=== PATIENT | male | born 1950 | race Caucasian/White ===

== ENCOUNTER 2018-05-03 13:03 | Emergency (ER) | payer MEDICARE, OTHER ==
[2018-05-03 13:03] VITALS: BMI 26.6
[2018-05-03 13:57] VITALS: BP 161/84; PULSE 64; RESP 18; TEMP 98.5; O2SAT 96
--- NOTE | 2018-05-03 15:37 | RAD ---
PROCEDURE: Left Hand Radiographs. HISTORY: left hand pain COMPARISON: None. FINDINGS: BONES: Normal. No fracture. JOINTS: Normal. No osteoarthritic changes. SOFT TISSUES: Normal. OTHER FINDINGS: None. IMPRESSION: Negative study
--- NOTE | 2018-05-03 16:46 | ED PDOC ---
Arrival/HPI - General Historian: Patient - History of Present Illness Narrative History of Present Illness (Text): 05/03/18 16:30 67 year old male with PMH of diabetes and HTN presents to emergency department complaining of left hand pain x 2 weeks. Describes pain as achey, located mostly to the proximal left 1st digit at MCP joint. States he feels a "ball there" and that sometimes it "gets stuck". Has not taken and medication for pain. Denies trauma/injury, open wounds, numbness, weakness, paresthesias, pain elsewhere, or any other associated symptoms. <Jenna Juárez - Last Filed: 05/03/18 16:29> <Frantz Puga - Last Filed: 05/03/18 17:48> - General Chief Complaint: Finger,Hand,&Wrist Time Seen by Provider: 05/03/18 14:00 Past Medical History - Provider Review Nursing Documentation Reviewed: Yes - Tetanus Immunization Tetanus Immunization: Unknown - Cardiac Hx Cardiac Disorders: Yes Hx Angina: Yes Hx Cardiac Arrhythmia: No Hx Circulatory Problems: No Hx Congestive Heart Failure: No Hx Heart Murmur: No Hx Heart Transplant: No Hx Hypertension: Yes Hx Internal Defibrillator: No Hx Mitral Valve Prolapse: No Hx Pacemaker: No Hx Peripheral Edema: No Hx Peripheral Vascular Disease: No - Pulmonary Hx Respiratory Disorders: No Hx Asthma: No Hx Bronchitis: No Hx Chronic Obstructive Pulmonary Disease (COPD): No Hx Emphysema: No Hx Pneumonia: No Hx Respiratory Aspiration: No Hx Respiratory Tract Infection: No Hx Sleep Apnea: No Hx Tuberculosis: No - Neurological Hx Neurological Disorder: No Hx Alzheimer's Disease: No HX Cerebrovascular Accident: No Hx Dementia: No Hx Dizziness: No Hx Meningitis: No Hx Migraine: No Hx Parkinson's Disease: No Hx Seizures: No Hx Transient Ischemic Attacks (TIA): No - HEENT Hx HEENT Disorder: Yes Hx Blind: No Hx Cataracts: No Hx Deafness: No Hx Difficulty Chewing: No Hx Epistaxis: No Hx Glaucoma: Yes Hx Macular Degeneration: No - Renal Hx Renal Disorder: No Hx Dialysis: No Hx Kidney Stones: No Hx Neurogenic Bladder: No Hx Pyelonephritis: No Hx Renal Cancer: No Hx Renal Failure: No - Endocrine/Metabolic Hx Endocrine Disorders: Yes Hx Adrenal Cancer: No Hx Diabetes Insipidus: No Hx Diabetes Mellitus Type 1: No Hx Diabetes Mellitus Type 2: Yes Hx Hyperthyroidism: No Hx Hypothyroidism: No Hx Systemic Lupus Erythematosus: No - Hematological/Oncological Hx Blood Disorders: No Hx AIDS: No Hx Anemia: No Hx Cancer: No Hx Chemotherapy: No Hx Cirrhosis: No Hx Hemophilia: No Hx Hepatitis A: No Hx Hepatitis B: No Hx Hepatitis C: No Hx Metastasis: No Hx Shingles: No Hx Sickle Cell Disease: No Hx Unexplained Bleeding: No - Integumentary Hx Dermatological Disorder: No Hx Basal Cell Carcinoma: No Hx Eczema: No Hx Melanoma: No Hx Psoriasis: No Hx Squamous Cell Carcinoma: No - Musculoskeletal/Rheumatological Hx Musculoskeletal Disorders: Yes Hx Arthritis: Yes Hx Back Pain: No Hx Degenerative Joint Disease: No Hx Falls: No Hx Fractures: No Hx Gout: No Hx Herniated Disk: No Hx Myasthenia Gravis: No Hx Osteoarthritis: No Hx Osteomyelitis: No Hx Osteoporosis: No Hx Rhabdomyolysis: No Hx Spinal Stenosis: No Hx Unsteady Gait: No - Gastrointestinal Hx Gastrointestinal Disorders: No Hx Colostomy: No Hx Crohn's Disease: No Hx Diverticulitis: No Hx Gall Bladder Disease: No Hx Gastroesophageal Reflux: No Hx Gastrointestinal Ulcer: No Hx Ileostomy: No Hx Liver Failure: No Hx Pancreatitis: No HX Swallowing Problems: No - Genitourinary/Gynecological Hx Genitourinary Disorders: No Hx Hematuria: No Hx Incontinence: No Hx Prostate Problems: No Hx Sexually Transmitted Diseases: No Hx Urinary Tract Infection: No - Psychiatric Hx Psychophysiologic Disorder: No Hx Anxiety: No Hx Bipolar Disorder: No Hx Depression: No Hx Emotional Abuse: No Hx Hallucinations: No Hx Panic Disorder: No Hx Post Traumatic Stress Disorder: No Hx Psychosis: No Hx Physical Abuse: No Hx Schizophrenia: No Hx Sexual Abuse: No Hx Substance Use: No - Surgical History Hx Amputation: No Hx Appendectomy: No Hx Cardiac Catheterization: No Hx Cholecystectomy: No Hx Coronary Stent: Yes Hx Gastric Bypass Surgery: No Hx Hysterectomy: No Hx Joint Replacement: No Hx Kidney Transplant: No Hx Liver Transplant: No Hx Mastectomy: No Hx Musculoskeletal Surgery: No Hx Open Heart Surgery: No Hx Orthopedic Surgery: No Hx Splenectomy: No Hx Valve Replacement: No - Anesthesia Hx Anesthesia: No Hx Anesthesia Reactions: No Hx Malignant Hyperthermia: No - Suicidal Assessment Feels Threatened In Home Enviroment: No <Jenna Juárez - Last Filed: 05/03/18 16:29> Family/Social History - Physician Review Nursing Documentation Reviewed: Yes Family/Social History: No Known Family HX Smoking Status: Current Some Days Smoker Hx Alcohol Use: No Hx Substance Use: No Hx Substance Use Treatment: No <Jenna Juárez - Last Filed: 05/03/18 16:29> Family/Social History: Unknown Family HX <Frantz Puga - Last Filed: 05/03/18 17:48> Allergies/Home Meds <Jenna Juárez - Last Filed: 05/03/18 16:29> <Frantz Puga - Last Filed: 05/03/18 17:48> Allergies/Adverse Reactions: Allergies No Known Allergies Allergy (Verified 01/16/14 17:48) Home Medications: Home Meds Medication Instructions Recorded Confirmed RX: Atorvastatin Calcium [Lipitor] 20 mg PO DAILY 01/16/14 01/16/14 RX: Glipizide 5 mg PO BID 01/16/14 01/16/14 RX: Lisinopril 2.5 mg PO DAILY 01/16/14 01/16/14 RX: Metformin HCl [Glucophage] 1,000 mg PO BID 01/16/14 01/16/14 RX: Metoprolol Tartrate 25 mg PO BID 01/16/14 01/16/14 RX: Yhpei-0-Jcus Ethyl Esters 1 cap PO DAILY 01/16/14 01/16/14 [OMEGA 3] RX: Vitamin B Complex/Folic Acid 1 tab PO DAILY 01/16/14 01/16/14 [B-Complex Tablet] Review of Systems - Physician Review All systems were reviewed & negative as marked: Yes - Review of Systems Constitutional: Normal. absent: Fevers Eyes: Normal. absent: Vision Changes ENT: Normal. absent: Sinus Congestion Respiratory: Normal. absent: SOB, Cough Cardiovascular: Normal. absent: Chest Pain, Palpitations, Syncope Gastrointestinal: Normal. absent: Abdominal Pain, Stool Changes, Nausea, Vomiting, Appetite Changes Genitourinary Male: Normal. absent: Dysuria, Frequency Musculoskeletal: Arthralgias (left thumb). absent: Back Pain Skin: Normal. absent: Rash, Cellulitis Neurological: Normal. absent: Headache, Dizziness Endocrine: Normal Hemo/Lymphatic: Normal Psychiatric: Normal <Jenna Juárez - Last Filed: 05/03/18 16:29> Physical Exam Vital Signs Reviewed: Yes Vital Signs Temp Pulse Resp BP Pulse Ox 05/03/18 13:03 98.5 F 64 18 161/84 H 96 Temperature: Afebrile Blood Pressure: Hypertensive Pulse: Regular Respiratory Rate: Normal Appearance: Positive for: Well-Appearing, Non-Toxic, Comfortable Pain Distress: None Mental Status: Positive for: Alert and Oriented X 3 - Systems Exam Head: Present: Atraumatic, Normocephalic Pupils: Present: PERRL Extroacular Muscles: Present: EOMI Conjunctiva: Present: Normal Mouth: Present: Moist Mucous Membranes Neck: Present: Normal Range of Motion. No: Meningeal Signs, MIDLINE TENDERNESS, Paraspinal Tenderness Respiratory/Chest: Present: Clear to Auscultation, Good Air Exchange. No: Respiratory Distress, Accessory Muscle Use Cardiovascular: Present: Regular Rate and Rhythm, Normal S1, S2, Peripheal Pulses Present Upper Extremity: Present: Normal ROM (but with pain on movement of left hand 1st MCP), NORMAL PULSES, Tenderness (left hand 1st MCP joint in volar webspace ), Neurovascularly Intact, Capillary Refill < 2s, Other (palpable hard small 0.5cm nonmobile mass in left hand 1st digit in volar webspace ). No: Cyanosis, Edema, Swelling, Erythema, Temperature Abnormalties, Deformity Lower Extremity: Present: Normal ROM Neurological: Present: GCS=15, CN II-XII Intact, Speech Normal, Motor Func Grossly Intact, Normal Sensory Function, Gait Normal Skin: Present: Warm, Dry, Normal Color. No: Rashes Lymphatic: No: Cervical Adenopathy Psychiatric: Present: Alert, Oriented x 3, Normal Insight, Normal Concentration, Normal Affect, Normal Mood <Jenna Juárez - Last Filed: 05/03/18 16:29> Vital Signs Temp Pulse Resp BP Pulse Ox 05/03/18 13:03 98.5 F 64 18 161/84 H 96 <Frantz Puga - Last Filed: 05/03/18 17:48> Medical Decision Making ED Course and Treatment: Initial Plan: * Left Hand XR * Tylenol * Reassess and Disposition Patient placed in left thumb spica splint by me. Neurovascular exam remains unchanged post-splint. Advised to followup with hand doctor within 2 days and take Naproxen for pain daily with food as needed. - RAD Interpretation Radiology Orders: 05/03/18 14:00 HAND LEFT 3 VIEWS ROUTINE [RAD] Stat - Medication Orders Current Medication Orders: Discontinued Medications Acetaminophen (Tylenol 325mg Tab) 650 mg PO STAT STA Stop: 05/03/18 14:01 Last Admin: 05/03/18 14:31 Dose: 650 mg MAR Pain/Vitals Document 05/03/18 14:31 SRE (Rec: 05/03/18 14:31 SRE [id number]) Pain Reassessment Is This A Pain ReAssessment? Yes Sleep Is patient sleeping during reassessment? No Presence of Pain Presence of Pain Yes Pain Scale Used Protocol: PSCALES Pain Scale Used Numeric Location Left, Right or Bilateral Left Pain Location Body Site Hand Description Intermittent Scale Used Numeric <Jenna Juárez - Last Filed: 05/03/18 16:29> - RAD Interpretation Radiology Orders: 05/03/18 14:00 HAND LEFT 3 VIEWS ROUTINE [RAD] Stat - Medication Orders Current Medication Orders: Discontinued Medications Acetaminophen (Tylenol 325mg Tab) 650 mg PO STAT STA Stop: 05/03/18 14:01 Last Admin: 05/03/18 14:31 Dose: 650 mg MAR Pain/Vitals Document 05/03/18 14:31 SRE (Rec: 05/03/18 14:31 SRE [id number]) Pain Reassessment Is This A Pain ReAssessment? Yes Sleep Is patient sleeping during reassessment? No Presence of Pain Presence of Pain Yes Pain Scale Used Protocol: [facility] Scale Used Numeric Location Left, Right or Bilateral Left Pain Location Body Site Hand Description Intermittent Scale Used Numeric <Frantz Puga - Last Filed: 05/03/18 17:48> - PA / ASSEMBLER ERECTOR / Resident Statement / has reviewed & agrees with the documentation as recorded. <Frantz Puga - Last Filed: 05/03/18 17:48> Disposition/Present on Arrival - Present on Arrival History of DVT/PE: No History of Uncontrolled Diabetes: No Urinary Catheter: No History of Decub. Ulcer: No History Surgical Site Infection Following: None <Jenna Juárez - Last Filed: 05/03/18 16:29> - Present on Arrival Any Indicators Present on Arrival: No History of DVT/PE: No History of Uncontrolled Diabetes: No Urinary Catheter: No History of Decub. Ulcer: No - Disposition Have Diagnosis and Disposition been Completed?: Yes Disposition Time: 17:48 Patient Plan: Discharge <Frantz Puga - Last Filed: 05/03/18 17:48> - Disposition Diagnosis: Hand pain, left Disposition: HOME/ ROUTINE Condition: IMPROVED Discharge Instructions (ExitCare): Muscle and Bone Pain (DC), Hand Pain (DC) Additional Instructions: Keep hand in splint until followup Naproxen as needed for pain Rest, no strenuous activity Followup with hand doctor within 2 days Followup with primary doctor within 2 days Return to ER with any new/worsening symptoms Prescriptions: RX: Naproxen [Naprosyn] 500 mg PO DAILY PRN #14 tablet PRN Reason: Pain, Moderate (4-7) Referrals: Zhou Vera MD [Staff Provider] - Follow up with primary Edil Hussein MD [Staff Provider] - Follow up with primary Radha Mccoy MD [Medical Doctor] - Follow up with primary Forms: [employer] (Vietnamese), WORK NOTE
== END 2018-05-03 15:45 | disposition home or self-care (01) ==
LOC: ED 13:03
DX: M79.642 Pain in left hand (principal)